=== PATIENT | male | born 1965 | race Caucasian/White ===

== ENCOUNTER → 2024-12-28 12:53 | Outpatient (REF) | payer BC, SELFPAY | LOC: HWRAD 12:53 | PROVIDERS: ATTENDING PHYSICIAN Otolaryngology | DX: J34.2 Deviated nasal septum (principal); J33.0 Polyp of nasal cavity | CPT/HCPCS: 70486 ==

== ENCOUNTER 2025-02-02 06:19 | Day surgery (SDC) | payer BC, SELFPAY ==
[2025-01-20 14:01] VITALS: BMI 26.6
[2025-01-20 14:39] LABS: Hematocrit 41.3 % (39.0-52.0); Mean Corp Hgb Conc. 33.9 g/dL (33.0-37.0); Mean Corpuscular Hgb 30.7 pg (27.0-31.0); Mean Corpuscular Volume 90.6 fL (80.0-94.0); Mean Platelet Volume 10.3 fL (7.4-10.4); Platelet Count 231 10^3/uL (130-400); Red Blood Cell Count 4.56 10^6/uL (4.70-6.10); Red Cell Dist. Width 12.7 % (11.5-14.5); White Blood Cell Count 5.8 10^3/uL (4.8-10.8)
[2025-02-02] VITALS (9 sets, daily range): BP systolic 114–150; BP diastolic 75–87; BMI 26.6
[2025-02-02] MEDS: NORMOSOL-R/PLASMALYTE-A 1000 IV ×2 (09:00→12:00)
== END 2025-02-02 13:29 | disposition home or self-care (01) ==
LOC: SDS 06:19
PROVIDERS: ATTENDING PHYSICIAN Otolaryngology
DX: J32.9 Chronic sinusitis, unspecified (principal); J34.3 Hypertrophy of nasal turbinates; J33.0 Polyp of nasal cavity; B96.89 Other specified bacterial agents as the cause of diseases classified elsewhere
CPT/HCPCS: 31254; 30802; 31267; 88304; 88311; 36415; 85027; 93005